=== PATIENT | female | born 1995 | race Caucasian/White ===

== ENCOUNTER 2020-01-03 12:38 | Emergency (ER) | payer SELFPAY ==
--- NOTE | ~2020-01-03 | US_ITS ---
EXAMINATION: US OB <=14 wk fetus w TV EXAM DATE: 01/03/2020 15:09 INDICATION: Cramping pelvic pain vaginal bleeding with clots. 1st trimester. TECHNIQUE: Pelvic obstetrical transabdominal sonogram was performed by a technologist. There are mu ltiple grayscale and Doppler images available for interpretation. There are no earlier studies of th is gestation for comparison. FINDINGS: Uterus measures 13.0 x 7.7 x 6.3 cm, is retroverted and without intrauterine emerita ntified. Endometrial stripe measures 21 mm, thickened with heterogeneous echogenicity. There is no f ree pelvic fluid. Right adnexa: The ovary measures 3.8 x 1.9 x 1.9 cm and is morphologically normal. Ovarian vascular f low confirmed. Left adnexa: The ovary measures 4.6 x 2.9 x 3.3 cm and is morphologically normal. Ovarian vascular fl ow confirmed. Early intrauterine or recent spontaneous are common causes of elevated beta hCG in absence of intrauterine confirmation. Ultrasound can sometimes identify, but never exclud e an ectopic in the setting of positive beta hCG. Follow up as warranted clinically with s erial beta hCG levels or ultrasound. IMPRESSION: Thickened heterogeneous endometrium without intrauterine or extra uterine ident ified. Consider follow-up pelvic sonogram as indicated clinically. Reviewed, dictated and finalized at location A. IMPRESSION: Thickened heterogeneous endometrium without intrauterine or extra u terine identified. Consider follow-up pelvic sonogram as indicated cl inically.
[2020-01-03 12:45] VITALS: BP 135/85; PULSE 111; RESP 22; TEMP 36.8; O2SAT 100
[2020-01-03 13:08] LABS: Basophils Percent Auto 0.4 % (0.2-1.2); Eosinophils Absolute Auto 0.2 K/mm3 (0-0.3); Eosinophils Percent Auto 1.9 % (0-4.4); Hematocrit 40.1 % (37.0-47.0); Hemoglobin 13.6 g/dL (12.0-15.0); Immature Granulocyte Absolute 0.05 K/mm3 (0.00-0.031); Immature Granulocyte Percent A 0.4 % (0-0.5); Lymphocytes Absolute Auto 3.02 K/mm3 (0.9-3.2); Lymphocytes Percent Auto 26.4 % (18.3-44.2); Mean Corpuscular HGB Conc 33.9 g/dl (32-36); Mean Corpuscular Hemoglobin 29.6 pg (26-34); Mean Corpuscular Volume 87.4 fl (80-100); Monocytes Absolute Auto 0.6 K/mm3 (0.1-0.6); Monocytes Percent Auto 4.8 % (2.6-8.5); Neutrophils Absolute Auto 7.5 K/mm3 (1.3-6.7); Neutrophils Percent Auto 66.1 % (45.5-73.1); Platelet Count Result 321 k/mm3 (150-375); Red Blood Count 4.59 M/mm3 (4.2-5.4); Red Cell Distribution Width 12.9 % (11.5-14.5); White Blood Count 11.4 K/mm3 (4.5-10.0)
[2020-01-03 13:39] LABS: Add Urine Microscopic? YES; Appearance Urine Clear (Clear); Bacteria Urine Trace /hpf; Bilirubin Urine Negative (Negative); Blood Urine 3+ (Negative); Calcium Oxalate Crystals Urine Present /hpf; Color Urine Yellow (Yellow); Glucose Urine UA Negative (Negative); Ketones Urine Negative (Negative); Leukocyte Esterase Ur Negative LEU/UL (Negative); Mucus Urine Heavy /lpf; Nitrate Urine Negative (Negative); Protein Urine 2+ mg/dL (Negative); RBC Urine >75 /hpf (0-2); Squamous Epithelial Cell Urine Occasional /hpf (Few); Urobilinogen Urine Negative mg/dL (<2.0)
--- NOTE | 2020-01-03 13:42 | ED.FEMALEGU ---
HPI - Female Genitourinary General Chief complaint: [employer] Stated complaint: Think I had a misarriage, 10 wks. Time Seen by Provider: 01/03/20 13:07 Source: patient Mode of arrival: ambulatory History of Present Illness HPI Narrative: 24-year-old female G2, P1 who is 10 weeks 3 days by ultrasound done in her OB office last week Today at work she had severe pelvic cramping for several minutes which was followed by passage of a large clot and then resolution of her symptoms and a minimal small amount of spotting since then No other symptoms Onset (ago): hour(s) Location of symptoms: pelvis Severity: moderate Quality of pain: cramping Vaginal bleeding: clots Treatment prior to arrival: none Related Data Home Medications Medication Instructions Recorded Confirmed No Home Medications 01/03/20 01/03/20 Allergies Allergy/AdvReac Type Severity Reaction Status Date / Time No Known Allergies Allergy Verified 01/03/20 12:53 Review of Systems Review of Systems: All systems reviewed & are unremarkable except as noted in HPI and below Constitutional: Constitutional: Denies chills, Denies fatigue, Denies fever(s), Denies headache(s) and Denies night sweats Eyes: Eyes: Denies change in vision, Denies loss of vision and Denies other visual disturbances ENT: Denies headache(s), Denies hoarseness, Denies epistaxis, Denies nasal congestion and Denies sore throat Cardiovascular: Cardiovascular: Denies chest pain, Denies leg edema, Denies palpitations and Denies dyspnea Respiratory: Respiratory: Denies cough, Denies dyspnea and Denies wheezing Gastrointestinal: Gastrointestinal: Reports abdominal pain, Denies diarrhea, Denies nausea and Denies vomiting Genitourinary: Genitourinary: Reports abnormal vaginal bleeding, Denies hematuria, Denies urinary frequency, Denies dysuria and Reports pelvic pain Musculoskeletal: Musculoskeletal: Denies abnormal gait, Denies deformity, Denies joint swelling, Denies muscle weakness and Denies numbness Integumentary/Breasts: Skin/Breast: Denies rash, Denies unusual bruising and Denies wounds Neurologic: Denies abnormal gait, Denies headache(s), Denies focal weakness, Denies loss of vision and Denies numbness Psychiatric: Psychiatric: Reports no additional psychiatric complaints Endocrine: Endocrine: Denies fatigue and Denies palpitations Hematologic/Lymphatic: Hematologic/Lymphatic: Denies easy bleeding and Denies easy bruising Allergic/Immunologic: Allergic/Immunologic: Denies wheezing PMFSH Social History Social History Gender identity (if verbalized by the patient): Female Exam Const: General: healthy appearing, no acute distress and well developed Nutritional Appearance: well nourished Orientation/consciousness: patient oriented x3 (alert) and Other orientation findings (Alert) Limitations: no limitations HENMT: Head: normocephalic and atraumatic Ears: external ears normal General nose exam: No nasal discharge present and no epistaxis Face and sinus: face symmetric Mouth: Yes lip normal, Yes tongue normal and Yes moist mucous membranes Throat: other (No exudate, no erythema) Eyes: Conjunctivae: conjunctivae normal Sclera: sclerae normal EOM: EOMs intact bilaterally Neck: Neck: full ROM, no lymphadenopathy and supple Thyroid: thyroid normal Resp: Effort & Inspection: normal respiratory effort Auscultation: rales, rhonchi, wheezes and other (breath sounds equal) Cardio: Rate: tachycardic Heart sounds: no gallops GI: Inspection: non-distended GI Palp: No abdominal tenderness, Yes Soft to palpation and No Tenderness to palpation present (GI) Auscultation: other (bowel sounds present) : Other: Small amount of dark blood in the vaginal vault Very little active bleeding from cervix Cervix feels soft but is closed Back/Spine/Pelvis: Back: no CVA tenderness Thoracic/Lumbar Spine: thoracic and lumbar spine normal to
--- NOTE | 2020-01-03 14:58 | PC.NURSE ---
could not draw blood at this time, patient is in ultrasound.
[2020-01-03 15:49] VITALS: BP 128/76; PULSE 95; RESP 17; O2SAT 99
== END 2020-01-03 15:51 | disposition home or self-care (01) ==
PROVIDERS: Emergency Medicine; Emergency Provider Emergency Medicine; PCP Obstetrics & Gynecology
DX: O03.9 Complete or unspecified spontaneous abortion without complication (principal)
CPT/HCPCS: 36415; 76801; 76817; 81001; 84702; 85025; 86900; 86901; 99284